=== PATIENT | female | born 1990 | race Caucasian/White ===

== ENCOUNTER → 2023-09-24 13:31 | Outpatient (REF) | payer OTHER, SELFPAY | LOC: RAD 13:31 | PROVIDERS: ATTENDING PHYSICIAN Obstetrics & Gynecology; FAMILY PHYSICIAN Family Medicine | DX: Z34.90 Encounter for supervision of normal pregnancy, unspecified, unspecified trimester (principal) | CPT/HCPCS: 76801; 76817 ==

== ENCOUNTER → 2023-09-24 18:18 | Outpatient (REF) | payer OTHER, SELFPAY | LOC: REG 18:18 | PROVIDERS: ATTENDING PHYSICIAN Obstetrics & Gynecology; FAMILY PHYSICIAN Family Medicine | DX: O02.1 Missed abortion (principal) | CPT/HCPCS: 36415; 86850; 86900; 86901; J2790 ==

== ENCOUNTER 2023-09-27 15:22 | Emergency (ER) | payer OTHER, SELFPAY ==
[2023-09-27 15:26] VITALS: BP 123/87
[2023-09-27 15:46] LABS: % Basophils 0.6 % (0-2); % Eosinophils 3.3 % (0-6); % Immature Granulocytes 0.3 % (0-0.5); % Lymphocytes 34.3 % (20.5-51.1); % Neutrophils 55.5 % (42.2-75.2); Absolute Basophils 0.1 10^3/uL (0-0.2); Absolute Eosinophils 0.3 10^3/uL (0-0.7); Absolute Lymphocytes 3.2 10^3/uL (1.2-3.4); Absolute Monocytes 0.6 10^3/uL (0.1-0.6); Absolute Neutrophils 5.2 10^3/uL (1.4-6.5); Hematocrit 36.9 % (37.0-47.0); Mean Corp Hgb Conc. 35.2 g/dL (33.0-37.0); Mean Corpuscular Hgb 31.9 pg (27.0-31.0); Mean Corpuscular Volume 90.4 fL (81.0-99.0); Mean Platelet Volume 9.1 fL (7.4-10.4); Nucleated Red Blood Cells % 0 %; Platelet Count 311 10^3/uL (130-400); Red Blood Cell Count 4.08 10^6/uL (4.20-5.40); Red Cell Dist. Width 11.3 % (11.5-14.5); White Blood Cell Count 9.4 10^3/uL (4.8-10.8)
[2023-09-27 15:59] LABS: ALT (SGPT) 18 U/L (0-35); AST (SGOT) 22 U/L (14-36); Albumin 4.6 g/dl (3.5-5.0); Alkaline Phosphatase 55 U/L (38-126); Blood Urea Nitrogen 19 mg/dl (7-17); Calcium 9.4 mg/dl (8.4-10.2); Carbon Dioxide 28 mmol/L (22-30); Chloride 104 mmol/L (98-107); Glucose 90 mg/dl (70-99); Potassium 4.1 mmol/L (3.5-5.1); Sodium 136 mmol/L (135-145); Total Bilirubin 0.7 mg/dl (0.2-1.3); Total Protein 7.4 g/dl (6.3-8.2); eGFR > 60.00
--- NOTE | 2023-09-27 16:42 | ED.GENMED ---
History of Present Illness
General
Chief Complaint: Problems
Source: patient
Exam Limitations: none
Time Seen by Provider: 09/27/23 16:29
Nursing documentation reviewed up to this point in time: agreed with
Travel History
Have you had any contact with someone who has COVID-19?: No
Do you have any symptoms of coronavirus? Fever > 100 degrees, chills, cough, shortness of breath, sore throat, loss of taste or smell, muscle aches, or headache?: No
History of Present Illness
History of Present Illness:
Patient to ED to r/o ectopic . States she was approx 6weeks, 2 days when she started to bleed this past weekend. She had an outpatient US on sunday, no evidence of IUP. States he HCG is slighly more elevated today than it was
earlier this week. She was sent to ED by Dr. Freeman for evaluation. She denies any pain.
Past History
Past History
ED Past Medical History: Psychiatric (anxiety) and Other (Chiari I malformation)
ED Past Surgical History: Tonsilectomy and Other (breast augmentation, rhinoplasty)
Social History
Tobacco: Former smoker (quit feb 2023. )
Alcohol: Occasional
Drug: None
Personal: Single
Living: with family
Review of Systems
Review of Systems
Allergies reviewed?: Yes
All Other Systems: ROS reviewed and negative except as documented in HPI and ROS
Constitutional: Reports no symptoms
EENT: Reports no symptoms
Respiratory: Reports no symptoms
Cardiac: Reports no symptoms
ABD/GI: Reports no symptoms
: Reports no symptoms
Musculoskeletal: Reports no symptoms
Skin: Reports no symptoms
Neurological: Reports no symptoms
Psychiatric: Reports no symptoms
Phy Exam
General Physical Exam
General Presentation: well appearing and no apparent distress
General age: appears stated age
General Skin: warm
General Habitus: normal
General Mental: alert
Gastrointestinal Exam
Gastrointestinal Exam: non tender and soft
Genitourinary Exam Female
Exam Female: other (Deferred for pelvic US)
Musculoskeletal Exam
Musculoskeletal Exam: full ROM
Skin Exam
Skin Exam: normal color, warm/dry and no rash
Psychiatric Exam
Psychiatric Exam: normal mood/affect
Course
Orders/Labs/Results
Orders:
Orders
09/27/23 15:32
US W Transvaginal Urgent
Reason For Exam: r/o ectopic, INCREASING HCG NO IUP ON US 2 DAYS AGO
09/27/23 15:36
Beta HCG Quantitative Urgent
Is this a screen?: No
Comment: patient is known to be
Complete Blood Count/With Diff Urgent
Comprehensive Metabolic Panel Urgent
09/27/23 21:00
Methotrexate Sodium/Pf [Methotrexate] 45 mg Syringe [Syringe Non-Pump] 0 ml IM ONCE@2100,2101
Abnormal Lab Results
09/27/23
15:36
RBC 4.08 L 10^6/uL
(4.20-5.40)
Hct 36.9 L %
(37.0-47.0)
MCH 31.9 H pg
(27.0-31.0)
RDW 11.3 L %
(11.5-14.5)
BUN 19 H mg/dl
(7-17)
Creatinine 1.2 H mg/dL
(0.6-1.0)
09/27/23 15:36
09/27/23 15:36
Vital Signs
Initial and Last Documented VS:
Initial Vital Signs
Temp Pulse Resp BP Pulse Ox
98.1 F 95 18 123/87 100
09/27/23 15:26 09/27/23 15:26 09/27/23 15:26 09/27/23 15:26 09/27/23 15:26
Last Documented Vital Signs
Temp Pulse Resp BP Pulse Ox
98.1 F 70 16 115/72 99
09/27/23 15:26 09/27/23 21:51 09/27/23 21:51 09/27/23 21:51 09/27/23 21:51
Information
Weeks gestation: Weeks: (6)
Location: Location: (suspected right falopian tube)
*Critical Care Note
Total Time (30-74mins, 75-104mins- exclusive of procedures): Not Applicable
Update Note
Update Note:
Patient notified of US findings. [place] text sent to Dr. Hernandez who then evaluated pateint in ED. Methotrexate administered in dept as per Dr Hernandez recommendation. Pateint will return to ED on Sunday for repeat HCG.
ED Attending Note
-
Portions of this chart may have been created with voice recognition software.� Occasional wrong word or��sound alike� substitutions may have occurred due to the inherent limitations of voice recognition software.
Discharge Plan
Departure
Patient Disposition: Home (Routine Discharge)
Date of Disposition: 09/27/23
Time of Disposition: 20:31
Patient with high blood pressure during this ER visit?: No
Condition: Good
Covid-19: Not Applicable
Discharge Problem:
Ectopic
Instructions: Ectopic (DC)
Prescriptions:
No Action
desogestrel-ethinyl estradiol [Enskyce] 1 EACH tablet
1 ea PO DAILY
ondansetron 4 MG tablet,disintegrating
4 mg PO TIDPRN PRN (Reason: nausea/vomiting) Qty: 9 0RF
Referrals:
Cynthia Mendoza DO [Family Provider] -
Activity Restrictions/Additional Instructions:
Return to the emergency department on Sunday for repeat HCG level.
Interventions
Interventions:
*Risk Screen - Suicide Last Done: 09/27/23 15:26
*General Assessment Last Done: 09/27/23 15:26
*Neglect/Abuse Screening Last Done: 09/27/23 15:26
ED- Fall Risk Assessment Last Done: 09/27/23 16:40
*ED COVID-19 Vaccine History Last Done: 09/27/23 15:26
*Nursing Disposition Last Done: 09/27/23 21:51
ED-Female Genitourinary Assessment Last Done: 09/27/23 16:40
Discharge Date and Time
Discharge Date/Time: 09/27/23 21:52
[2023-09-27 18:45] VITALS: BMI 22.9
[2023-09-27 18:46] VITALS: BP 111/80
[2023-09-27] MEDS: METHOTREXATE 1.80000000000000004 MG IM ×2 (21:30→21:31)
[2023-09-27 21:51] VITALS: BP 115/72
== END 2023-09-27 21:52 | disposition home or self-care (01) ==
LOC: EMR 15:22
PROVIDERS: Student in an Organized Health Care Education/Training Program; EMERGENCY PHYSICIAN Emergency Medicine; FAMILY PHYSICIAN Family Medicine
DX: O00.90 Unspecified ectopic pregnancy without intrauterine pregnancy (principal)
CPT/HCPCS: 99284; 96372; 76801; 76817; 80053; 84702; 85025; J9260

== ENCOUNTER → 2023-09-30 10:24 | Outpatient (REF) | payer OTHER, SELFPAY ==
[2023-09-30 11:43] LABS: Beta HCG Quantitative 175.51 mIU/ml
== END ==
LOC: OLAB 10:24
PROVIDERS: ATTENDING PHYSICIAN Obstetrics & Gynecology
DX: O00.90 Unspecified ectopic pregnancy without intrauterine pregnancy (principal)
CPT/HCPCS: 84702

== ENCOUNTER → 2023-10-03 07:55 | Outpatient (REF) | payer OTHER, SELFPAY ==
[2023-10-03 10:54] LABS: Beta HCG Quantitative 155.06 mIU/ml
== END ==
LOC: REG 07:55
PROVIDERS: ATTENDING PHYSICIAN Obstetrics & Gynecology
DX: O00.90 Unspecified ectopic pregnancy without intrauterine pregnancy (principal)
CPT/HCPCS: 36415; 84702

== ENCOUNTER 2023-10-03 12:20 | Emergency (ER) | payer OTHER, SELFPAY ==
[2023-10-03 12:42] VITALS: BP 109/73
--- NOTE | 2023-10-03 15:07 | ED.GENMED ---
History of Present Illness
General
Chief Complaint: Problems
Time Seen by Provider: 10/03/23 14:17
Travel History
Have you had any contact with someone who has COVID-19?: No
Do you have any symptoms of coronavirus? Fever > 100 degrees, chills, cough, shortness of breath, sore throat, loss of taste or smell, muscle aches, or headache?: No
History of Present Illness
History of Present Illness:
33-year-old female presents for repeat dosing of methotrexate. Was seen this emergency department last week and diagnosed with an ectopic , received initial dose of methotrexate. Followed up with her [employer] and her hCG levels were not
downtrending as much is anticipated that she was sent to the ER to receive a repeat dose of methotrexate. She denies any complaints at this time
Past History
Past History
ED Past Medical History: Psychiatric (anxiety) and Other (Chiari I malformation)
ED Past Surgical History: Tonsilectomy and Other (breast augmentation, rhinoplasty)
Social History
Tobacco: Former smoker (quit feb 2023. )
Alcohol: Occasional
Drug: None
Personal: Single
Living: with family
Review of Systems
Review of Systems
Allergies reviewed?: Yes
All Other Systems: ROS reviewed and negative except as documented in HPI and ROS
Phy Exam
Physical Exam
Physical Exam:
GEN: Well appearing, NAD, WDWN
HEENT: Oral mucosa moist, no scleral icterus
Cardiac: Regular rate
Lung: No respiratory distress, no tachypnea
MSK: No gross deformity or injuries
Skin: Good color, no pallor or jaundice, no rashes
Neuro: AO x3, moves all extremities freely
Psych: Calm, cooperative
Course
Orders/Labs/Results
Orders:
Orders
10/03/23 16:00
Methotrexate Sodium/Pf [Methotrexate] 46 mg Intramuscular Injection 0 ml IM BID@1600,1601
Vital Signs
Initial and Last Documented VS:
Initial Vital Signs
Temp Pulse Resp BP Pulse Ox
98.0 F 100 16 109/73 98
10/03/23 12:42 10/03/23 12:42 10/03/23 12:42 10/03/23 12:42 10/03/23 12:42
Last Documented Vital Signs
Temp Pulse Resp BP Pulse Ox
98.0 F 100 16 109/73 98
10/03/23 12:42 10/03/23 12:42 10/03/23 12:42 10/03/23 12:42 10/03/23 12:42
Information
Weeks gestation: N/A
Location: N/A
MDM/Problems Addressed
MDM/Problems Addressed:
Repeat dose administered without difficulty, patient will continue to follow-up with [facility] as an outpatient
*Critical Care Note
Total Time (30-74mins, 75-104mins- exclusive of procedures): Not Applicable
ED Attending Note
-
Portions of this chart may have been created with voice recognition software.� Occasional wrong word or��sound alike� substitutions may have occurred due to the inherent limitations of voice recognition software.
Discharge Plan
Departure
Patient Disposition: Home (Routine Discharge)
Date of Disposition: 10/03/23
Time of Disposition: 15:07
Patient with high blood pressure during this ER visit?: No
Discharge Problem:
Ectopic
Instructions: Ectopic (DC)
Prescriptions:
No Action
desogestrel-ethinyl estradiol [Enskyce] 1 EACH tablet
1 ea PO DAILY
ondansetron 4 MG tablet,disintegrating
4 mg PO TIDPRN PRN (Reason: nausea/vomiting) Qty: 9 0RF
Referrals:
Simona Hernandez MD [Active] -
Interventions
Interventions:
*Risk Screen - Suicide Last Done: 10/03/23 14:22
*General Assessment Last Done: 10/03/23 14:22
*Neglect/Abuse Screening Last Done: 10/03/23 14:22
ED- Fall Risk Assessment Last Done: 10/03/23 14:22
*ED COVID-19 Vaccine History Last Done: 10/03/23 12:42
*Nursing Disposition Last Done: 10/03/23 16:33
ED-Female Genitourinary Assessment Last Done: 10/03/23 14:22
Discharge Date and Time
Discharge Date/Time: 10/03/23 16:34
[2023-10-03] MEDS: METHOTREXATE 1.84000000000000008 MG IM ×2 (16:22→16:24)
== END 2023-10-03 16:34 | disposition home or self-care (01) ==
LOC: EMR 12:20
PROVIDERS: EMERGENCY PHYSICIAN Emergency Medicine; FAMILY PHYSICIAN Family Medicine
DX: O00.90 Unspecified ectopic pregnancy without intrauterine pregnancy (principal)
CPT/HCPCS: 99284; 96372; J9260

== ENCOUNTER → 2023-10-06 10:00 | Outpatient (REF) | payer OTHER, SELFPAY ==
[2023-10-06 10:58] LABS: Beta HCG Quantitative 83.79 mIU/ml
== END ==
LOC: REG 10:00
PROVIDERS: ATTENDING PHYSICIAN Obstetrics & Gynecology; FAMILY PHYSICIAN Family Medicine
DX: O00.90 Unspecified ectopic pregnancy without intrauterine pregnancy (principal)
CPT/HCPCS: 36415; 84702

== ENCOUNTER → 2023-10-09 08:10 | Outpatient (REF) | payer OTHER, SELFPAY ==
[2023-10-09 09:03] LABS: Beta HCG Quantitative 38.44 mIU/ml
== END ==
LOC: REG 08:10
PROVIDERS: ATTENDING PHYSICIAN Obstetrics & Gynecology; FAMILY PHYSICIAN Family Medicine
DX: O00.90 Unspecified ectopic pregnancy without intrauterine pregnancy (principal)
CPT/HCPCS: 36415; 84702

== ENCOUNTER → 2023-10-15 07:36 | Outpatient (REF) | payer OTHER, SELFPAY ==
[2023-10-15 09:14] LABS: Beta HCG Quantitative 10.99 mIU/ml
== END ==
LOC: REG 07:36
PROVIDERS: ATTENDING PHYSICIAN Obstetrics & Gynecology; FAMILY PHYSICIAN Family Medicine
DX: O02.1 Missed abortion (principal)
CPT/HCPCS: 36415; 84702

== ENCOUNTER → 2023-10-22 07:05 | Outpatient (REF) | payer OTHER, SELFPAY ==
[2023-10-22 08:11] LABS: Beta HCG Quantitative 6.17 mIU/ml
== END ==
LOC: REG 07:05
PROVIDERS: ATTENDING PHYSICIAN Obstetrics & Gynecology
DX: O02.1 Missed abortion (principal)
CPT/HCPCS: 36415; 84702

== ENCOUNTER → 2023-10-31 07:45 | Outpatient (REF) | payer OTHER, SELFPAY ==
[2023-10-31 11:05] LABS: Beta HCG Quantitative < 2.39 mIU/ml
== END ==
LOC: REG 07:45
PROVIDERS: ATTENDING PHYSICIAN Obstetrics & Gynecology; FAMILY PHYSICIAN Family Medicine
DX: O02.1 Missed abortion (principal)
CPT/HCPCS: 36415; 84702

== ENCOUNTER → 2024-01-01 16:47 | Outpatient (REF) | payer OTHER, SELFPAY | LOC: RAD 16:47 | PROVIDERS: ATTENDING PHYSICIAN Obstetrics & Gynecology; FAMILY PHYSICIAN Family Medicine | DX: O00.91 Unspecified ectopic pregnancy with intrauterine pregnancy (principal) | CPT/HCPCS: 76830; 76856 ==

== ENCOUNTER 2024-01-05 08:47 | Emergency (ER) | payer OTHER, SELFPAY ==
[2024-01-05 08:55] VITALS: BP 100/76
--- NOTE | 2024-01-05 09:04 | ED.GENMED ---
History of Present Illness
<Tammy Duarte, FOREMAN OR SUPERVISOR AND OPERATOR - Last Filed: 01/06/24 21:46>
General
Chief Complaint: Problems
Source: patient
Exam Limitations: none
Time Seen by Provider: 01/05/24 08:59
Nursing documentation reviewed up to this point in time: agreed with
Travel History
Have you had any contact with someone who has COVID-19?: No
Do you have any symptoms of coronavirus? Fever > 100 degrees, chills, cough, shortness of breath, sore throat, loss of taste or smell, muscle aches, or headache?: No
History of Present Illness
History of Present Illness:
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 She had an ultrasound 4 days ago and
she reports her hCG that day was 2113. She denies vaginal bleeding/discharge. She has constant mid to lower abdominal dull ache with intermittent general abdominal cramping. Minimal discomfort at this time.
Past History
<Tammy Duarte, FOREMAN OR SUPERVISOR AND OPERATOR - Last Filed: 01/06/24 21:46>
Past History
ED Past Medical History: Psychiatric (anxiety) and Other (Chiari I malformation)
ED Past Surgical History: Tonsilectomy and Other (breast augmentation, rhinoplasty)
Social History
Tobacco: Former smoker (quit feb 2023. )
Alcohol: Occasional
Drug: None
Personal: Single
Living: with family
Employment: Employed
Review of Systems
<Tammy Duarte FOREMAN OR SUPERVISOR AND OPERATOR - Last Filed: 01/06/24 21:46>
Review of Systems
Allergies reviewed?: Yes
All Other Systems: ROS reviewed and negative except as documented in HPI and ROS
Constitutional: Denies fever or chills
Respiratory: Denies trouble breathing
Cardiac: Denies chest pain
ABD/GI: Reports abdominal pain; Denies nausea, vomiting, diarrhea, constipated or anorexia
: Denies dysuria, frequency, urgency or bleeding
Musculoskeletal: Reports no symptoms
Skin: Reports no symptoms
Neurological: Reports no symptoms
Phy Exam
<Tammy Duarte, FOREMAN OR SUPERVISOR AND OPERATOR - Last Filed: 01/06/24 21:46>
Physical Exam
Physical Exam:
GENERAL: No acute distress. A&Ox3.
CONSTITUTIONAL: Afebrile.
RESPIRATORY: Regular respirations, nonlabored, lungs clear.
CARDIOVASCULAR: Regular rate and rhythm, no murmurs, no rubs.
GI: Soft, mild mid abdominal tenderness, normal BS
MUSCULOSKELETAL: Moves with ease. Well perfused.
SKIN: Warm, dry, pink
PSYCH: Normal mood and affect. Well kept, interactive and appropriate
NEUROLOGIC: Awake, alert and oriented. No focal neurological deficits
Course
<Tammy Duarte, FOREMAN OR SUPERVISOR AND OPERATOR - Last Filed: 01/06/24 21:46>
Orders/Labs/Results
Orders:
Orders
01/05/24 09:03
0.9% Sodium Chloride 1000 ml [Nss] 1,000 ml IV BOLUS
Test Result ONCE
01/05/24 09:05
Beta HCG Quantitative Urgent
Comment: ADD ON
Complete Blood Count/With Diff Urgent
Comprehensive Metabolic Panel Urgent
01/05/24 09:15
Urinalysis Reflex To Culture Urgent
Specimen Description:
Date Specimen was Collected: 01/05/24
Time Specimen was Collected: 09:13
01/05/24 09:50
Add On- LAB Urgent
Tests Added?: beta hcg quant
01/05/24 09:51
Add On- LAB Urgent
Tests Added?: HCG serum quantitative
01/05/24 10:43
US W Transvaginal Urgent
Reason For Exam: abd pain approx 6 weeks
01/05/24 15:08
* Blood Bank Products Urgent
Blood Bank Products: Rhogam - Mini Dose
Blood Bank Products: Rhogam - Mini Dose
Quantity: 50 mg
Transfuse Today: Yes
Reason: Other
Other reason: Vaginal bleeding/miscarriage
01/05/24 15:49
Type+Screen Stat
BBK Wristband Number:
01/05/24 17:00
Methotrexate Sodium/Pf [Methotrexate] 46.75 mg Syringe [Syringe Non-Pump] 0 ml IM Q2M
01/05/24 18:30
Rho(D) Immune Globulin [Hyperrho S-D] 1,500 unit IM ONCE ONE
Abnormal Lab Results
01/05/24 01/05/24
09:05 15:49
RBC 4.04 L 10^6/uL
(4.20-5.40)
Hct 36.1 L %
(37.0-47.0)
MCH 31.7 H pg
(27.0-31.0)
RDW 11.4 L %
(11.5-14.5)
Antibody Screen Positive A
(Negative)
01/05/24 09:05
01/05/24 09:05
Vital Signs
Initial and Last Documented VS:
Initial Vital Signs
Temp Pulse Resp BP Pulse Ox
97.8 F 78 16 100/76 98
01/05/24 08:55 01/05/24 08:55 01/05/24 08:55 01/05/24 08:55 01/05/24 08:55
Last Documented Vital Signs
Temp Pulse Resp BP Pulse Ox
97.8 F 78 20 101/67 98
01/05/24 08:55 01/05/24 18:38 01/05/24 13:00 01/05/24 18:38 01/05/24 18:38
Communications Manager consulted with Physician
Communications Manager consulted with physician?: Yes
Name of Physician Consulted: Karey
Information
Weeks gestation: N/A
Location: N/A
<Dara Eden MD - Last Filed: 01/05/24 15:04>
Orders/Labs/Results
Orders:
Orders
01/05/24 09:03
0.9% Sodium Chloride 1000 ml [Nss] 1,000 ml IV BOLUS
Test Result ONCE
01/05/24 09:05
Beta HCG Quantitative Urgent
Comment: ADD ON
Complete Blood Count/With Diff Urgent
Comprehensive Metabolic Panel Urgent
01/05/24 09:15
Urinalysis Reflex To Culture Urgent
Specimen Description:
Date Specimen was Collected: 01/05/24
Time Specimen was Collected: 09:13
01/05/24 09:50
Add On- LAB Urgent
Tests Added?: beta hcg quant
01/05/24 09:51
Add On- LAB Urgent
Tests Added?: HCG serum quantitative
01/05/24 10:43
US W Transvaginal Urgent
Reason For Exam: abd pain approx 6 weeks
01/05/24 15:08
* Blood Bank Products Urgent
Blood Bank Products: Rhogam - Mini Dose
Blood Bank Products: Rhogam - Mini Dose
Quantity: 50 mg
Transfuse Today: Yes
Reason: Other
Other reason: Vaginal bleeding/miscarriage
01/05/24 15:49
Type+Screen Stat
BBK Wristband Number:
01/05/24 17:00
Methotrexate Sodium/Pf [Methotrexate] 46.75 mg Syringe [Syringe Non-Pump] 0 ml IM Q2M
01/05/24 18:30
Rho(D) Immune Globulin [Hyperrho S-D] 1,500 unit IM ONCE ONE
Abnormal Lab Results
01/05/24 01/05/24
09:05 15:49
RBC 4.04 L 10^6/uL
(4.20-5.40)
Hct 36.1 L %
(37.0-47.0)
MCH 31.7 H pg
(27.0-31.0)
RDW 11.4 L %
(11.5-14.5)
Antibody Screen Positive A
(Negative)
01/05/24 09:05
01/05/24 09:05
Vital Signs
Initial and Last Documented VS:
Initial Vital Signs
Temp Pulse Resp BP Pulse Ox
97.8 F 78 16 100/76 98
01/05/24 08:55 01/05/24 08:55 01/05/24 08:55 01/05/24 08:55 01/05/24 08:55
Last Documented Vital Signs
Temp Pulse Resp BP Pulse Ox
97.8 F 78 20 101/67 98
01/05/24 08:55 01/05/24 18:38 01/05/24 13:00 01/05/24 18:38 01/05/24 18:38
<Tammy Duarte, FOREMAN OR SUPERVISOR AND OPERATOR - Last Filed: 01/06/24 21:46>
MDM/Problems Addressed
Differential Diagnosis Includes:
Normal /Pains of early , threatened miscarriage, ectopic
MDM/Problems Addressed:
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 She had an ultrasound 4 days ago and
she reports her hCG that day was 2113. She denies vaginal bleeding/discharge. She has constant mid to lower abdominal dull ache with intermittent general abdominal cramping. Minimal discomfort at this time.
NAD
10:30 AM
CBC normal
CMP normal
hCG 2038.50
UA negative
1:15 PM
Ultrasound with transvaginal radiology report read: IMPRESSION: High Dr. Freeman, patient Karen Marti patient of Dr. Hernandez's is here with abdominal pain hide Dr. Freeman
1. Thickened endometrium containing complex fluid or hemorrhage, but no intrauterine gestational sac. This could be secondary to a miscarriage.
2. 3.4 cm hyperechoic avascular mass adjacent to the left ovary which is not an appearance strongly suggestive of an ectopic .
3. No sonographic evidence for adnexal lesion with a sonographic appearance to suggest an ectopic .
4. Small amount of peritoneal fluid in the pelvis.
With no gestational sac, with avascular mass, no vaginal bleeding or discharge concern for ectopic .
Consulted [facility] Dr. Freeman
2:[address] Freeman in to see patient
<Tammy Duarte FOREMAN OR SUPERVISOR AND OPERATOR - Last Filed: 01/06/24 21:46>
*Critical Care Note
Total Time (30-74mins, 75-104mins- exclusive of procedures): Not Applicable
ED Attending Note
<Tammy Duarte FOREMAN OR SUPERVISOR AND OPERATOR - Last Filed: 01/06/24 21:46>
-
Portions of this chart may have been created with voice recognition software.� Occasional wrong word or��sound alike� substitutions may have occurred due to the inherent limitations of voice recognition software.
<Dara Eden MD - Last Filed: 01/05/24 15:04>
ED Attending Note
I performed the substantive portion of visit, reviewed & personally made and approve the management plan that is documented in note by myself or PARISH.: Yes
ED Attending Note:
case d/w dr Freeman, she will write for rhogam/methotexate now, f/u lab slips, I will d/c with instructins for repeat beta on , she gave pt instructions re:methotrexate precautions.
Discharge Plan
Departure
Patient Disposition: Home (Routine Discharge)
Date of Disposition: 01/05/24
Time of Disposition: 16:12
Patient with high blood pressure during this ER visit?: No
Condition: Good
Discharge Problem:
Ectopic
Instructions: Ectopic , Methotrexate
Prescriptions:
No Action
desogestrel-ethinyl estradiol [Enskyce] 1 EACH tablet
1 ea PO DAILY
ondansetron 4 MG tablet,disintegrating
4 mg PO TIDPRN PRN (Reason: nausea/vomiting) Qty: 9 0RF
Referrals:
Gregg Freeman MD [Active] - 01/08/24
Cynthia Mendoza DO [Family Provider] -
Activity Restrictions/Additional Instructions:
PLEASE REFER TO METHOTREXATE PRECAUTIONS. IF YOU DEVELOP INCREASING/NEW PAIN, BLEEDING, FEVER, VOMITING, DIZZINESS, OR OTHER WORRISOME SIGNS, GO TO THE ER IMMEDIATELY!
Interventions
Interventions:
*Risk Screen - Suicide Last Done: 01/05/24 09:26
*General Assessment Last Done: 01/05/24 09:26
*Neglect/Abuse Screening Last Done: 01/05/24 09:26
ED- Fall Risk Assessment Last Done: 01/05/24 18:41
*ED COVID-19 Vaccine History Last Done: 01/05/24 08:55
*Nursing Disposition Last Done: 01/05/24 18:41
ED-Female Genitourinary Assessment Last Done: 01/05/24 09:26
Discharge Date and Time
Discharge Date/Time: 01/05/24 18:42
Print Language: WELSH
[2024-01-05] MEDS: NSS 1000 IV (09:17)
[2024-01-05 09:29] LABS: % Basophils 0.7 % (0-2); % Eosinophils 3.9 % (0-6); % Immature Granulocytes 0.5 % (0-0.5); % Monocytes 6.7 % (1.7-9.3); % Neutrophils 61.2 % (42.2-75.2); Absolute Basophils 0.1 10^3/uL (0-0.2); Absolute Eosinophils 0.3 10^3/uL (0-0.7); Absolute Lymphocytes 2.2 10^3/uL (1.2-3.4); Absolute Monocytes 0.6 10^3/uL (0.1-0.6); Hematocrit 36.1 % (37.0-47.0); Hemoglobin 12.8 g/dL (12.0-16.0); Mean Corp Hgb Conc. 35.5 g/dL (33.0-37.0); Mean Corpuscular Hgb 31.7 pg (27.0-31.0); Mean Corpuscular Volume 89.4 fL (81.0-99.0); Mean Platelet Volume 9.3 fL (7.4-10.4); Nucleated Red Blood Cells % 0 %; Platelet Count 285 10^3/uL (130-400); Red Blood Cell Count 4.04 10^6/uL (4.20-5.40); Red Cell Dist. Width 11.4 % (11.5-14.5); White Blood Cell Count 8.2 10^3/uL (4.8-10.8)
[2024-01-05 09:37] LABS: ALT (SGPT) 15 U/L (0-35); AST (SGOT) 18 U/L (14-36); Albumin 4.4 g/dl (3.5-5.0); Alkaline Phosphatase 54 U/L (38-126); Blood Urea Nitrogen 17 mg/dl (7-17); Calcium 9.4 mg/dl (8.4-10.2); Carbon Dioxide 27 mmol/L (22-30); Chloride 104 mmol/L (98-107); Glucose 97 mg/dl (70-99); Potassium 4.6 mmol/L (3.5-5.1); Sodium 138 mmol/L (135-145); Total Bilirubin 0.5 mg/dl (0.2-1.3); Total Protein 7.1 g/dl (6.3-8.2); eGFR > 60.00
[2024-01-05 10:05] LABS: Urine Albumin Negative (Neg - Trace); Urine Bilirubin Negative (Negative); Urine Character Clear (Clear); Urine Color Yellow; Urine Glucose Negative (Negative); Urine Ketone Negative (Negative); Urine Leukocyte Negative (Negative); Urine Nitrite Negative (Negative); Urine Occult Blood Negative (Negative); Urine Specific Gravity 1.015 (<1.030); Urine Urobilinogen Negative (Neg - 1+); Urine pH 6.5 (5.0-9.0)
[2024-01-05 11:00] VITALS: BP 105/72
[2024-01-05 13:00] VITALS: BP 107/64
[2024-01-05 15:03] VITALS: BMI 24.5
--- NOTE | 2024-01-05 15:09 | CON.MD ---
Consultation - Medical
-
Full consult dictated
Assessment: at 6+ wks with inappropriately rising HCG's, no IUP on U/S-findings consistent with ectopic . Ultrasound x 2 (12/31 and 01/05/24) does not definitively show evidence of tubal .
Recommendation: Proceed with MTX (dose 50mg/BSA), patient agrees. Precautions given including nothing in the vagina, no alcohol, folic acid/vitamins, anti-inflammatory medications. Patient advised to avoid sun exposure and gassy food. Patient to
have quantitative HCG's done on day 4 and 7 (01/08/24 and 01/11/24), requisitions for [facility] lab slips given. Importance of compliance reviewed. Patient to call for severe pain or bleeding, is to expect abdominal discomfort and
mild/moderate cramping.
Mini-Rhogam for blood type RH negative
[2024-01-05] MEDS: METHOTREXATE 1.87000000000000011 MG IM ×2 (16:49→16:53)
[2024-01-05] MEDS: HYPERRHO S-D 1500 UNIT IM (18:27)
[2024-01-05 18:38] VITALS: BP 101/67
== END 2024-01-05 18:42 | disposition home or self-care (01) ==
LOC: EMR 08:47
PROVIDERS: Registered Nurse; EMERGENCY PHYSICIAN Emergency Medicine; FAMILY PHYSICIAN Family Medicine; OTHER PHYSICIAN Obstetrics & Gynecology
DX: O26.891 Other specified pregnancy related conditions, first trimester (principal); Z3A.01 Less than 8 weeks gestation of pregnancy; R93.89 Abnormal findings on diagnostic imaging of other specified body structures; G93.5 Compression of brain; F32.A Depression, unspecified; F41.9 Anxiety disorder, unspecified; Z88.8 Allergy status to other drugs, medicaments and biological substances
CPT/HCPCS: 99284; 96372 ×2; 76801; 76817; 80053; 81003; 84702; 85025; 86850; 86870; 86900; 86901; J2790; J9260

== ENCOUNTER → 2024-01-08 06:31 | Outpatient (REF) | payer OTHER, SELFPAY ==
[2024-01-08 07:53] LABS: Beta HCG Quantitative 465.85 mIU/ml
== END ==
LOC: REG 06:31
PROVIDERS: ATTENDING PHYSICIAN Obstetrics & Gynecology; FAMILY PHYSICIAN Family Medicine
DX: O00.90 Unspecified ectopic pregnancy without intrauterine pregnancy (principal)
CPT/HCPCS: 36415; 84702

== ENCOUNTER → 2024-01-11 07:11 | Outpatient (REF) | payer OTHER, SELFPAY ==
[2024-01-11 08:23] LABS: Beta HCG Quantitative 100.13 mIU/ml
== END ==
LOC: REG 07:11
PROVIDERS: ATTENDING PHYSICIAN Obstetrics & Gynecology; FAMILY PHYSICIAN Family Medicine
DX: O00.90 Unspecified ectopic pregnancy without intrauterine pregnancy (principal)
CPT/HCPCS: 36415; 84702

== ENCOUNTER → 2024-01-16 07:26 | Outpatient (REF) | payer OTHER, SELFPAY ==
[2024-01-16 08:39] LABS: Beta HCG Quantitative 18.63 mIU/ml
== END ==
LOC: REG 07:26
PROVIDERS: ATTENDING PHYSICIAN Obstetrics & Gynecology; FAMILY PHYSICIAN Family Medicine
DX: O00.90 Unspecified ectopic pregnancy without intrauterine pregnancy (principal)
CPT/HCPCS: 36415; 84702

== ENCOUNTER → 2024-01-22 12:27 | Outpatient (REF) | payer OTHER, SELFPAY | LOC: REG 12:27 | PROVIDERS: ATTENDING PHYSICIAN Obstetrics & Gynecology | DX: O00.90 Unspecified ectopic pregnancy without intrauterine pregnancy (principal) | CPT/HCPCS: 84702 ==

== ENCOUNTER 2024-07-16 21:22 | Day surgery (SDC) | payer OTHER, SELFPAY ==
[2024-07-16] VITALS (9 sets, daily range): BP systolic 97–138; BP diastolic 40–92; BMI 24.5
--- NOTE | 2024-07-16 13:06 | ED.GENMED ---
ED Provider Triage
<Araceli Escobedo PA-C - Last Filed: 07/16/24 13:07>
-
Patient seen by provider in Triage?: Seen in Triage
Attestation: A medical screening examination has been initiated by a qualified medical provider. Based on the assessment performed at this time, it has been determined that an emergent medical condition may exist and the patient has been informed
that further medical evaluation and possible additional diagnostic testing may be needed.
HPI: 34yoF currently 6 weeks . Had outpatient ultrasound earlier today that diagnosed ectopic and heart beat detected. Sent to ED for surgery. Currently c/o LLQ pain that began this morning. No vaginal bleeding, dizziness, syncope.
GENERAL: Alert , in no apparent distress
EYE: No visual abnormalities.
NECK: Trachea midline
ENT: No visible abnormalities.
LUNGS: No acute respiratory distress
NEUROLOGICAL: Alert and oriented
SKIN: Skin intact. No visible changes.
MUSCULOSKELETAL: Moving extremities normally
PSYCH: Normal and appropriate interaction.
This is a medical evaluation conducted in person to initiate diagnostic evaluation and provide initial therapeutics. Please see further documentation by the treating clinician.
VSS. Labs including type and screen ordered. TigerText sent to OBGYN.
History of Present Illness
<Araceli Escobedo PA-C - Last Filed: 07/16/24 13:07>
General
Chief Complaint: Problems
Time Seen by Provider: 07/16/24 13:20
<Toni Valerio Jr., PA-C - Last Filed: 07/16/24 15:33>
General
Source: patient
Exam Limitations: none
Nursing documentation reviewed up to this point in time: agreed with
History of Present Illness
History of Present Illness:
34-year-old female past medical history of anxiety depression presenting to the emergency department today with concerns of ectopic to the left lower quadrant. 6 weeks 4 days by dates. Ultrasound confirming this as an outpatient. Sent
in for surgery today. Patient in no distress has minimal discomfort to the area no bleeding.
Past History
<Araceli Escobedo PA-C - Last Filed: 07/16/24 13:07>
Past History
ED Past Medical History: Psychiatric (anxiety) and Other (Chiari I malformation)
ED Past Surgical History: Tonsilectomy and Other (breast augmentation, rhinoplasty)
Social History
Tobacco: Former smoker (quit feb 2023. )
Alcohol: Occasional
Drug: None
Personal: Single
Living: with family
Employment: Employed
Review of Systems
<Toni Valerio Jr., PA-C - Last Filed: 07/16/24 15:33>
Review of Systems
Allergies reviewed?: Yes
All Other Systems: ROS reviewed and negative except as documented in HPI and ROS
Phy Exam
<Toni Valerio Jr., PA-C - Last Filed: 07/16/24 15:33>
Physical Exam
Physical Exam:
GENERAL: Alert , in no apparent distress
EYE: pupils equal and reactive
NECK: Supple, no significant adenopathy.
ENT: o/p clr, mmm.
CARDIAC: Regular rate and rhythm .
LUNGS: Clear breath sounds bilaterally, no acute respiratory distress, no wheezes/rales/rhonchi
ABDOMEN: Soft, without focal tenderness, no r/g, no cvat
NEUROLOGICAL: Alert and oriented, no focal neuro deficits
SKIN: Warm and dry, skin intact.
MUSCULOSKELETAL: No edema, well perfused.
PSYCH: Normal and appropriate interaction.
Course
<Araceli Escobedo PA-C - Last Filed: 07/16/24 13:07>
Orders/Labs/Results
Orders:
Orders
07/16/24 13:13
Type+Screen Urgent
Beta HCG Quantitative Urgent
Is this a screen?: No
Complete Blood Count/With Diff Urgent
Comprehensive Metabolic Panel Urgent
07/16/24 13:49
0.9% Sodium Chloride 500 ml [Nss] 500 ml IV BOLUS
Abnormal Lab Results
07/16/24
13:13
RBC 4.09 L 10^6/uL
(4.20-5.40)
Hct 36.4 L %
(37.0-47.0)
MCH 31.5 H pg
(27.0-31.0)
RDW 11.3 L %
(11.5-14.5)
07/16/24 13:13
07/16/24 13:13
Vital Signs
Initial and Last Documented VS:
Initial Vital Signs
Temp Pulse Resp BP Pulse Ox
98.7 F 98 16 138/92 100
07/16/24 13:00 07/16/24 13:00 07/16/24 13:00 07/16/24 13:00 07/16/24 13:00
Last Documented Vital Signs
Temp Pulse Resp BP Pulse Ox
98.7 F 84 16 124/75 99
07/16/24 13:00 07/16/24 14:00 07/16/24 14:00 07/16/24 14:00 07/16/24 14:00
<Tnoi Valerio Jr., PA-C - Last Filed: 07/16/24 15:33>
Orders/Labs/Results
Orders:
Orders
07/16/24 13:13
Type+Screen Urgent
Beta HCG Quantitative Urgent
Is this a screen?: No
Complete Blood Count/With Diff Urgent
Comprehensive Metabolic Panel Urgent
07/16/24 13:49
0.9% Sodium Chloride 500 ml [Nss] 500 ml IV BOLUS
Abnormal Lab Results
07/16/24
13:13
RBC 4.09 L 10^6/uL
(4.20-5.40)
Hct 36.4 L %
(37.0-47.0)
MCH 31.5 H pg
(27.0-31.0)
RDW 11.3 L %
(11.5-14.5)
07/16/24 13:13
07/16/24 13:13
Vital Signs
Initial and Last Documented VS:
Initial Vital Signs
Temp Pulse Resp BP Pulse Ox
98.7 F 98 16 138/92 100
07/16/24 13:00 07/16/24 13:00 07/16/24 13:00 07/16/24 13:00 07/16/24 13:00
Last Documented Vital Signs
Temp Pulse Resp BP Pulse Ox
98.7 F 84 16 124/75 99
07/16/24 13:00 07/16/24 14:00 07/16/24 14:00 07/16/24 14:00 07/16/24 14:00
Information
Weeks gestation: Weeks: (6)
Location: Location: (tubal)
<Toni Valerio Jr., PA-C - Last Filed: 07/16/24 15:33>
MDM/Problems Addressed
MDM/Problems Addressed:
34-year-old female presenting to the emergency department today with concerns of ectopic to the left fallopian tube. 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 Currently 6 weeks 4 days. Has had multiple ectopic pregnancies in
the past. Labs drawn otherwise the surgeon was contacted directly who is aware of the case and will take to the OR later today. Stable throughout ER stay.
<Toni Valerio Jr., PA-C - Last Filed: 07/16/24 15:33>
*Critical Care Note
Total Time (30-74mins, 75-104mins- exclusive of procedures): Not Applicable
ED Attending Note
<Araceli Escobedo PA-C - Last Filed: 07/16/24 13:07>
-
Portions of this chart may have been created with voice recognition software.� Occasional wrong word or��sound alike� substitutions may have occurred due to the inherent limitations of voice recognition software.
Discharge Plan
Departure
Patient Disposition: OR
Date of Disposition: 07/16/24
Time of Disposition: 15:32
Admit to: OR
Admit to doctor: [facility]
Presentation/result/management discussed w/ accepting MD/DO: [facility] Polisher Operator
Patient with high blood pressure during this ER visit?: No
Condition: Good
Covid-19: Not Applicable
Discharge Problem:
Ectopic
Prescriptions:
No Action
desogestrel-ethinyl estradiol [Enskyce] 1 EACH tablet
1 ea PO DAILY
ondansetron 4 MG tablet,disintegrating
4 mg PO TIDPRN PRN (Reason: nausea/vomiting) Qty: 9 0RF
Referrals:
Cynthia Mendoza DO [Family Provider] -
Interventions
Interventions:
*Risk Screen - Suicide Last Done: 07/16/24 13:41
*General Assessment Last Done: 07/16/24 13:41
*Neglect/Abuse Screening Last Done: 07/16/24 13:41
ED- Fall Risk Assessment Last Done: 07/16/24 13:41
ED-Female Genitourinary Assessment Last Done: 07/16/24 13:41
Discharge Date and Time
Print Language: KYRGYZ
[2024-07-16 13:26] LABS: % Basophils 0.6 % (0-2); % Eosinophils 2.7 % (0-6); % Immature Granulocytes 0.2 % (0-0.5); % Lymphocytes 29.6 % (20.5-51.1); % Monocytes 5.9 % (1.7-9.3); Absolute Basophils 0.1 10^3/uL (0-0.2); Absolute Eosinophils 0.3 10^3/uL (0-0.7); Absolute Lymphocytes 3.1 10^3/uL (1.2-3.4); Absolute Monocytes 0.6 10^3/uL (0.1-0.6); Absolute Neutrophils 6.5 10^3/uL (1.4-6.5); Hematocrit 36.4 % (37.0-47.0); Hemoglobin 12.9 g/dL (12.0-16.0); Mean Corp Hgb Conc. 35.4 g/dL (33.0-37.0); Mean Corpuscular Hgb 31.5 pg (27.0-31.0); Mean Platelet Volume 9.1 fL (7.4-10.4); Nucleated Red Blood Cells % 0 %; Platelet Count 264 10^3/uL (130-400); Red Blood Cell Count 4.09 10^6/uL (4.20-5.40); Red Cell Dist. Width 11.3 % (11.5-14.5); White Blood Cell Count 10.6 10^3/uL (4.8-10.8)
[2024-07-16 13:37] LABS: ALT (SGPT) 15 U/L (0-35); AST (SGOT) 18 U/L (14-36); Alkaline Phosphatase 43 U/L (38-126); Blood Urea Nitrogen 15 mg/dl (7-17); Calcium 9.7 mg/dl (8.4-10.2); Carbon Dioxide 24 mmol/L (22-30); Chloride 103 mmol/L (98-107); Glucose 93 mg/dl (70-99); Potassium 4.6 mmol/L (3.5-5.1); Sodium 137 mmol/L (135-145); Total Bilirubin 0.7 mg/dl (0.2-1.3); Total Protein 7.5 g/dl (6.3-8.2); eGFR > 60.00
[2024-07-16] MEDS: NSS 500 IV (14:00)
--- NOTE | 2024-07-16 16:19 | HP.FOC2 ---
Focused History & Physical
Chief Complaint
HPI:
Chief Complaint: Ectopic
HPI / Indication for Planned Procedure:
34yo (SVDx1) who was seen at [facility] this morning for a routine US and was found to have an ectopic with a FHB. She was advised that given the presence of the heart beat she was not a candidate for MTX and was therefore directed to the
hospital for surgical mgmt. Patient states she was seeing [facility] due to h/o 2 ectopics this year (both treated with MTX) and IVF was recommended but the couple wanted to try one last time to see if they can successfully conceive on their own but
unfortunately was found to have another ectopic. She has mild cramping that started after the US because she said the tech was doing a lot of manipulation to get the pictures. Otherwise she feels okay. No bleeding, mild nausea but no emesis.
Relevant Past Medical History: Other (Anxiety)
Relevant Social History: Negative and Tobacco Use (Quit 2022)
Relevant Family History: Positive for (Dad- Quadriplegia, MGF- Stomach CA, Paternal Aunt- Breast CA)
Relevant Past Surgical History: Positive for (Tonsillectomy, Rhinoplasty, Breast Augmentation)
Review of Systems
Review of Pertinent Systems: All Systems Negative
Medication
See Medication form for detailed medications: Yes
Medication List (including Herbals & OTC):
cholecalciferol (vitamin D3) 25 mcg (1,000 unit) capsule (Vitamin D3) 25 mcg PO DAILY 07/16/24
ibuprofen 600 mg tablet 600 mg PO Q6H PRN pain/cramp #30 tabs 07/16/24
levothyroxine 25 mcg tablet (Synthroid) 25 mcg PO DAILY 07/16/24
omega-3 fatty acids 1,000 mg PO DAILY 07/16/24
oxycodone-acetaminophen 5 mg-325 mg tablet (Percocet) 1 tab PO Q4H PRN pain #10 tabs 07/16/24
vit no.95-ferrous fumarate 28 mg-folic acid 800 mcg tablet () 1 tab PO DAILY 07/16/24
Medications Reviewed: Yes
Allergies and Reactions
Patient has Allergies: Yes
Noted Allergies and Reactions:
Allergy/AdvReac Type Severity Reaction Status Date / Time
venlafaxine [From Effexor] Allergy hives and Verified 07/16/24 13:23
lip
swelling
Pertinent Physical Exam
All Other Systems: Negative
Abdomen: Normal (No r/g, non tender. )
Diagnosis / Assessment
34yo with Left ectopic
Plan / Procedure
Patient is currently hemodynamically stable, non acute abdomen with no concern for ruptured ectopic . I explained to the patient that I was able to review the images sent from [facility] showing the ectopic . Given that there is a FHB and
her HCG is so high, there is a very high MTX failure rate in this situation, thus I would recommend proceeding with surgical intervention. I explained the procedure of a Diag Laparoscopy, Left Salpingectomy. Risks of bleeding, infection, injury to
bowel/bladder/ureter or other surrounding structures, possible laparotomy were all reviewed. Consents signed. Post-op expectations and limitations were also reviewed. Script for percocet and Motrin were sent to the pharmacy.
Anesthesia/Sedation to be done by Anesthesia Provider: Yes
Vital Signs / Labs
-
Vital Signs and Labs:
Temp Pulse Resp BP Pulse Ox
98.7 F 86 16 102/72 100
07/16/24 13:00 07/16/24 16:16 07/16/24 16:16 07/16/24 16:16 07/16/24 16:16
07/16/24 13:13
07/16/24 13:13
07/16/24
13:13
RBC 4.09 L
Hct 36.4 L
MCH 31.5 H
RDW 11.3 L
HC,097
[2024-07-16] MEDS: NSS 1000 IV (17:27)
[2024-07-16] MEDS: OFIRMEV 100 IV (21:29)
[2024-07-16] MEDS: ROXICODONE 5 MG PO (21:50)
== END 2024-07-16 22:18 | disposition home or self-care (01) ==
LOC: SDS 21:22
PROVIDERS: Physician Assistant; ATTENDING PHYSICIAN Obstetrics & Gynecology; EMERGENCY PHYSICIAN Student in an Organized Health Care Education/Training Program; FAMILY PHYSICIAN Family Medicine
DX: O00.102 Left tubal pregnancy without intrauterine pregnancy (principal); O09.10 Supervision of pregnancy with history of ectopic pregnancy, unspecified trimester; Z87.891 Personal history of nicotine dependence
CPT/HCPCS: 59151; 88305; 80053; 84702; 85025; 86850; 86900; 86901; 96361; 96374; 96375; 99284; C1776

== ENCOUNTER → 2025-03-17 16:41 | Outpatient (REF) | payer OTHER, SELFPAY | LOC: RAD 16:41 | PROVIDERS: ATTENDING PHYSICIAN Obstetrics & Gynecology | DX: O20.0 Threatened abortion (principal) | CPT/HCPCS: 76801; 76817 ==

== ENCOUNTER → 2025-03-23 09:49 | Outpatient (REF) | payer OTHER, SELFPAY | LOC: PNTC 09:49 | PROVIDERS: ATTENDING PHYSICIAN Student in an Organized Health Care Education/Training Program; FAMILY PHYSICIAN Family Medicine; REFERRING PHYSICIAN Obstetrics & Gynecology | DX: O26.859 Spotting complicating pregnancy, unspecified trimester (principal) | CPT/HCPCS: 36415; 76801; 86850; 86900; 86901; 96372; J2790 ==

== ENCOUNTER → 2025-03-31 06:53 | Outpatient (REF) | payer OTHER, SELFPAY | LOC: PNTC 06:53 | PROVIDERS: ATTENDING PHYSICIAN Obstetrics & Gynecology | DX: Z36.82 Encounter for antenatal screening for nuchal translucency (principal) | CPT/HCPCS: 76801; 76813 ==

== ENCOUNTER → 2025-04-20 10:13 | Outpatient (REF) | payer OTHER, SELFPAY | LOC: PNTC 10:13 | PROVIDERS: ATTENDING PHYSICIAN Obstetrics & Gynecology | DX: O20.8 Other hemorrhage in early pregnancy (principal) | CPT/HCPCS: 76815 ==

== ENCOUNTER → 2025-04-27 06:50 | Outpatient (REF) | payer OTHER, SELFPAY | LOC: PNTC 06:50 | PROVIDERS: ATTENDING PHYSICIAN Obstetrics & Gynecology | DX: O09.819 Supervision of pregnancy resulting from assisted reproductive technology, unspecified trimester (principal) | CPT/HCPCS: 76805 ==

== ENCOUNTER → 2025-05-26 06:46 | Outpatient (REF) | payer OTHER, SELFPAY | LOC: PNTC 06:46 | PROVIDERS: ATTENDING PHYSICIAN Obstetrics & Gynecology | DX: Z36.86 Encounter for antenatal screening for cervical length (principal); O41.1020 Infection of amniotic sac and membranes, unspecified, second trimester, not applicable or unspecified; O09.812 Supervision of pregnancy resulting from assisted reproductive technology, second trimester | CPT/HCPCS: 76811; 76817 ==

== ENCOUNTER → 2025-06-04 10:45 | Outpatient (REF) | payer OTHER, SELFPAY | LOC: PNTC 10:45 | PROVIDERS: ATTENDING PHYSICIAN Obstetrics & Gynecology | DX: O09.812 Supervision of pregnancy resulting from assisted reproductive technology, second trimester (principal); Z36.3 Encounter for antenatal screening for malformations; Z36.2 Encounter for other antenatal screening follow-up | CPT/HCPCS: 76815 ==

== ENCOUNTER → 2025-07-21 13:24 | Outpatient (REF) | payer BC, SELFPAY | LOC: PNTC 13:24 | PROVIDERS: ATTENDING PHYSICIAN Student in an Organized Health Care Education/Training Program | DX: Z34.93 Encounter for supervision of normal pregnancy, unspecified, third trimester (principal) | CPT/HCPCS: 36415; 86850; 86900; 86901; 96372; J2790 ==